=== PATIENT | female | born 1960 | race Caucasian/White ===

== ENCOUNTER 2023-04-27 11:41 | Emergency (ER) | payer BC ==
[2023-04-27] MEDS ORDERED: HYDROmorphone 2 MG/ML Syringe SUBCUT ONE (11:53)
== END 2023-04-27 13:05 | disposition home or self-care (01) ==
LOC: LB.ED 11:41
DX: S52.502A Unspecified fracture of the lower end of left radius, initial encounter for closed fracture (principal); W01.0XXA Fall on same level from slipping, tripping and stumbling without subsequent striking against object, initial encounter
CPT/HCPCS: 29125; 73110; 96372; 99283; J1170

== ENCOUNTER 2023-09-05 11:31 | Emergency (ER) | payer SELFPAY | END 2023-09-05 12:00 | disposition home or self-care (01) | LOC: LB.ED 11:31 | DX: S66.212A Strain of extensor muscle, fascia and tendon of left thumb at wrist and hand level, initial encounter (principal); X58.XXXA Exposure to other specified factors, initial encounter | CPT/HCPCS: 99283 ==